=== PATIENT | female | born 1990 | race Caucasian/White ===

== ENCOUNTER 2017-01-08 19:43 | Emergency (ER) | payer OTHER ==
[~2017-01-08] VITALS: Ht 160 cm; Wt 86.2 kg
[~2017-01-08 19:43] MED LIST: NITR100C62 PO
[2017-01-08 19:50] VITALS: BP 143/105
[2017-01-08] MEDS ORDERED: KETOROLAC 60 MG/2 ML VIAL. IM ONE (20:15)
[2017-01-08 20:25] LABS: BILIRUBIN,URINE NEG (NEG); CLARITY,URINE TURBID; COLOR,URINE RED; GLUCOSE,URINE NEG (NEG); NITRITE,URINE NEG (NEG); UROBILINOGEN,URINE 0.2 mg/dL (0.2 mg/dL)
[2017-01-08 20:26] LABS: BACTERIA,URINE 0 /HPF (0-FEW); RBC,URINE TNTC /HPF (0-2); SQUAMOUS EPITHELIAL CELL,UR OCC /LPF; WBC,URINE RARE /HPF (0-4)
[2017-01-08 20:28] LABS: U PREG PATIENT NEGATIVE (NEG)
--- NOTE | 2017-01-08 21:44 | PHYS DOC ---
Past History Past Medical History: Kidney Stones, Other Past Surgical History: Cholecystectomy Alcohol Use: None Drug Use: None Adult General Chief Complaint Chief Complaint: VAGINAL BLEEDING HPI HPI Patient is a 26 year old female who presents with vaginal bleeding. Patient reports 1 month history of intermittent vaginal bleeding, today heavier than usual & passing clots. She states many days she doesn't use pads at all, isn't sure how many she used today. She reports aching pain across her lower back, denies abdominal pain. Denies fevers/chills, nausea/vomiting, diarrhea, dysuria /hematuria, vaginal discharge. She has history of ovarian cysts & irregular menses. Review of Systems Review of Systems Constitutional: Denies fever or chills HENT: Denies nasal congestion or sore throat Respiratory: Denies cough or shortness of breath Cardiovascular: Denies chest pain GI: Denies abdominal pain, nausea, vomiting, or diarrhea : Denies dysuria or hematuria, reports vaginal bleeding. Musculoskeletal: Reports back pain, denies joint pain Integument: Denies rash Neurologic: Denies headache Current Medications Current Medications Current Medications Medications (Trade) Dose Ordered Sig/Merrill Start Time Stop Time Status Last Admin Dose Admin Ketorolac Tromethamine (Toradol) 60 mg 1X ONCE 01/08/17 20:15 01/08/17 20:16 DC 01/08/17 20:17 60 MG Allergies Allergies Allergies Coded Allergies Type Severity Reaction Last Updated Verified No Known Drug Allergies 01/08/17 No Physical Exam Physical Exam Constitutional: Well developed, well nourished, no acute distress, non-toxic appearance. HENT: Normocephalic, atraumatic, bilateral external ears normal, oropharynx moist, nose normal. Eyes: conjunctiva normal, no discharge. Neck: supple, no stridor. Cardiovascular: RRR, no murmurs, no edema. Lungs & Thorax: LCTAB, no wheezing, no respiratory distress. Abdomen: soft, nontender, nondistended. No masses or pulsatile masses, no rebound or guarding : normal appearing female external genitalia, normal appearing cervix with closed os, small amount of red blood in vaginal vault without active hemorrhage , few clots present, no CMT/adnexal tenderness. Skin: Warm, dry, no erythema, no rash. Back: No CVA tenderness. Extremities: No tenderness, no edema. Neurologic: Alert and oriented X 3 Current Patient Data Vital Signs Vital Signs Date Time Temp Pulse Resp B/P (MAP) Pulse Ox O2 Delivery O2 Flow Rate FiO2 01/08/17 19:50 97.5 95 20 98 Room Air Lab Results Laboratory Tests Test 01/08/17 19:50 Urine Collection Type Unknown Urine Color Red Urine Clarity Turbid Urine pH 6.5 Urine Specific [place] 1.010 Urine Protein 100 mg/dl (NEG-TRACE) Urine Glucose (UA) Neg mg/dL (NEG) Urine Ketones (Stick) Neg mg/dL (NEG) Urine Blood Large (NEG) Urine Nitrite Neg (NEG) Urine Bilirubin Neg (NEG) Urine Urobilinogen Dipstick 0.2 mg/dL (0.2 mg/dL) Urine Leukocyte Esterase Neg (NEG) Urine RBC Tntc /HPF (0-2) Urine WBC Rare /HPF (0-4) Urine Squamous Epithelial Cells Occ /LPF Urine Bacteria 0 /HPF (0-FEW) Urine Test Negative (NEG) EKG EKG [] Radiology/Procedures Radiology/Procedures [] Course & Med Decision Making Course & Med Decision Making Pertinent Labs and Imaging studies reviewed. (See chart for details) The patient presents with heavy irregular vaginal bleeding. Not tachycardic or hypotensive, no dyspnea or lightheadedness, no abdominal pain on exam. Recommend tylenol or ibuprofen for pain, follow up with gynecology as soon as possible for further evaluation & consideration of treatment. Come back for severe pain, hemorrhage requiring use of greater than 1 pad per hour, any otherwise worsening condition. Discharged home in stable condition. [] Dragon Disclaimer Dragon Disclaimer This chart was dictated in whole or in part using Voice Recognition software in a busy, high-work load, and often noisy Emergency Department environment. It may contain unintended and wholly unrecognized errors or omissions. Departure Departure: Impression: Primary Impression: Menometrorrhagia Disposition: HOME, SELF-CARE Condition: STABLE Referrals: NAME,ABRAN KEMP (PCP) [facility] Patient Instructions: Menorrhagia, [id number] Additional Instructions: You were seen in the emergency department today for heavy and irregular periods. The tests here did not show any serious problems. It is important to follow-up with a steward/stewardess dining room for further testing and possible medications to control your cycles. Follow-up as soon as possible with Dr. Bella at [place]. Come back for severe abdominal pain, heavy bleeding requiring more than 1 pad per hour, any otherwise worsening condition. JAZMIN JOSEPH MD Jan 08, 2017 21:44
[2017-01-10 21:08] LABS: CHLAMYDIA PROBE Negative (Negative)
== END 2017-01-08 22:10 | disposition home or self-care (01) ==
LOC: MERGE 19:43 → ER 19:43
DX: N92.1 Excessive and frequent menstruation with irregular cycle (principal); M54.5 Low back pain; Z87.442 Personal history of urinary calculi
CPT/HCPCS: 36415; 81001; 81025; 87491; 87591; 96372; 99284; J1885; Q0111